=== PATIENT | male | born 1975 | race Caucasian/White ===

== ENCOUNTER → 2018-04-27 | Outpatient (CLI) | payer BC ==
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
== END | disposition home or self-care (01) ==
LOC: RADXRMAIN 17:22
PROVIDERS: ATTEND Nurse Practitioner
DX: Z01.818 Encounter for other preprocedural examination (principal); M79.89 Other specified soft tissue disorders

== ENCOUNTER → 2019-07-10 | Outpatient (CLI) | payer BC ==
[2019-07-10 10:48] LABS: HCT 52.8 % (39.0-53.0); HGB 17.4 gm/dL (13.0-17.5); MCH 33.2 pg (25.0-35.0); MCHC 32.9 g/dL (31.0-37.0); MCV 100.8 fL (80.0-100.0); Mean Platelet Volume 7.4; Platelet Count 230 k/uL (150-450); RBC 5.24 m/uL (4.30-5.90); RDW 13.3 % (11.5-15.5); WBC 4.9 k/uL (3.8-10.6)
[2019-07-10 11:37] LABS: Eosinophils # (M) 0.05 k/uL (0-0.7); Lymphocytes # (M) 0.69 k/uL (1.0-4.8); Monocytes # (M) 0.59 k/uL (0-1.0); Neutrophils # (M) 3.58 k/uL (1.3-7.7); Neutrophils % (M) 73 %; Nucleated Red Blood Cells 0 /100 WBC (0-0); Total Cells Counted 100
[2019-07-10 16:50] LABS: African American GFR (CKD) 105.6 (60.0-200.0); Albumin 4.5 g/dL (3.80-4.90); Albumin/Globulin Ratio 1.96 (1.60-3.17); Anion Gap 5.9 mmol/L (4.00-12.00); Bilirubin, Conjugated 0.2 mg/dL (0.20-0.40); Bilirubin,Unconjugated 0.4 mg/dL; Calcium 9.4 mg/dL (8.7-10.3); Carbon Dioxide 27.1 mmol/L (21.6-31.8); Chol/HDL Ratio 5.59; Globulin 2.3 g/dL (1.6-3.3); LDL Cholesterol,Calculated 151.6 mg/dL (0.0-131.0); Non-African American GFR(CKD) 91.1 (60.0-200.0); Potassium 4.6 mmol/L (3.5-5.5); Total Bilirubin 0.6 mg/dL (0.2-1.2); Total Protein 6.8 g/dL (6.2-8.2); VLDL Calculation 18.4 mg/dL (5.00-40.00)
[2019-07-10 16:57] LABS: T4, Free (Free Thyroxine) 1.2 ng/dL (0.80-1.80)
== END | disposition home or self-care (01) ==
LOC: LABWHC1 10:22
PROVIDERS: ATTEND Nurse Practitioner Family
DX: Z00.00 Encounter for general adult medical examination without abnormal findings (principal)
CPT/HCPCS: 36415; 80053; 80061; 82248; 84153; 84439; 84443; 85025

== ENCOUNTER 2019-12-02 07:29 | Emergency (ER) | payer BC, OTHER ==
[2019-12-02 07:40] VITALS: RESP 18; TEMP 98
[2019-12-02] MEDS ORDERED: LIDOCAINE 1% INJ 10MG/ML (20 ML MDV) SQ ONE (07:48)
--- NOTE | 2019-12-02 07:50 | ED ---
Wound/Laceration HPI - General Chief Complaint: Wound/Laceration Stated Complaint: Hand laceration, [facility] Time Seen by Provider: 12/02/19 07:45 Source: patient, RN notes reviewed Mode of arrival: ambulatory Limitations: no limitations - History of Present Illness Initial Comments: This a 43-year-old male presents emergency Department chief complaint of left hand laceration. Patient states that his tetanus is up-to-date last 2 years. Patient states that he was cutting supplies using a razor blade states that he cut his left hand. No paresthesias or decreased range of motion. Patient states that bleeding is on the moderate. Patient offers no other complaints. - Related Data Allergies Allergy/AdvReac Type Severity Reaction Status Date / Time No Known Allergies Allergy Verified 12/02/19 07:40 Review of Systems ROS Statement: Those systems with pertinent positive or pertinent negative responses have been documented in the HPI. ROS Other: All systems not noted in ROS Statement are negative. Past Medical History Past Medical History: No Reported History History of Any Multi-Drug Resistant Organisms: None Reported Additional Past Surgical History / Comment(s): left hand carpal tunnel sx Past Psychological History: No Psychological Hx Reported Smoking Status: Never smoker Past Alcohol Use History: None Reported Past Drug Use History: None Reported General Exam Limitations: no limitations General appearance: alert, in no apparent distress Head exam: Present: atraumatic, normocephalic, normal inspection Respiratory exam: Present: normal lung sounds bilaterally. Absent: respiratory distress, wheezes, rales, rhonchi, stridor Cardiovascular Exam: Present: regular rate (Heart rate 92), normal rhythm, normal heart sounds. Absent: systolic murmur, diastolic murmur, rubs, gallop, clicks Extremities exam: Present: other (Left hand dorsal aspect there is a 3 cm lace ration November 14 and second digit. Patient has full range of motion full-strength a neurovascular intact Refill less than 2 seconds no tendon involvement) Course Vital Signs 12/02/19 07:37 Temperature 98.0 F Pulse Rate 120 H Respiratory 18 Rate Blood Pressure 131/82 O2 Sat by Pulse 96 Oximetry Procedures - Laceration Laceration #1 Consent Obtained: verbal consent Indication: laceration Site: hand (Left) Size (cm): 3 Description: linear Depth: simple, single layer Anesthetic Used: lidocaine 1%, with epi Anesthesia Technique: local infiltration Amount (mls): 6 Pre-repair: wound explored, irrigated extensively, deep structures intact Type of Sutures: nylon Size of Sutures: 4-0 Number of Sutures: 8 Technique: simple, interrupted Complications: bleeding (Pressure dressing was applied, neurovascular intact, hemostasis achieved) Patient Tolerated Procedure: well, no complications Medical Decision Making - Medical Decision Making 43-year-old male presented for left hand laceration. This was closed using sutures. Patient tolerated well. Patient did have some mild bleeding which dressing was applied. No evidence of arterial injury. Disposition Clinical Impression: Laceration of left hand Disposition: HOME SELF-CARE Condition: Stable Instructions (If sedation given, give patient instructions): Care For Your Stitches (ED), Laceration (ED) Additional Instructions: Have sutures removed in 10 days. Please return to the Emergency Department if symptoms worsen or any other concerns. Is patient prescribed a controlled substance at d/c from ED?: No Referrals: Oliver Gonzáles Jr, [Primary Care Provider] - 1-2 days Time of Disposition: 08:24
[2019-12-02] MEDS ORDERED: LIDOCAINE 1%-EPI 1:100,000 20 ML VIAL SQ ONE (08:10)
[2019-12-02 08:43] VITALS: BP 127/96; PULSE 90
== END 2019-12-02 08:41 | disposition home or self-care (01) ==
LOC: EC 07:29
DX: S61.412A Laceration without foreign body of left hand, initial encounter (principal); Z98.890 Other specified postprocedural states; W26.8XXA Contact with other sharp object(s), not elsewhere classified, initial encounter; Y92.69 Other specified industrial and construction area as the place of occurrence of the external cause; Y93.89 Activity, other specified; Y99.0 Civilian activity done for income or pay
CPT/HCPCS: 12002; 99282